=== PATIENT | male | born 1955 | race Caucasian/White ===

== ENCOUNTER 2024-11-20 00:58 | Emergency (ER) | payer MEDICARE ==
[~2024-11-20] VITALS: Ht 182.8 cm; Wt 93.0 kg
[2024-11-20] MEDS ORDERED: Lidocaine Hydrochloride 5 ML AMP SC ONE (01:55)
[2024-11-20] MEDS ORDERED: Sulfamethoxazole/Trimethopri 1 TAB TAB PO ONE (01:55)
[2024-11-20] MEDS ORDERED: Acetaminophen/Hydrocodone ES 7.5/325 tablet PO ONE (04:25)
[2024-11-20] MEDS ORDERED: SEPTDS PO (04:30)
== END 2024-11-20 05:00 | disposition home or self-care (01) ==
LOC: ED 00:58
DX: L03.011 Cellulitis of right finger (principal)